=== PATIENT | male | born 1970 | race Caucasian/White ===

== ENCOUNTER 2016-08-06 10:05 | Outpatient (CLI) | payer BC | END 2016-08-06 10:06 | disposition home or self-care (01) | DX: R91.8 Other nonspecific abnormal finding of lung field (principal) ==

== ENCOUNTER 2018-07-10 15:28 | Outpatient (CLI) | payer BC ==
--- NOTE | 2018-07-10 16:19 | XRAY Report ---
Reason: PAIN IN LEFT SHOULDER Procedure Date: 07/10/2018 Accession Number: [id number] / [id number] Procedure: XR - Shoulder 2 View LT CPT Code: FULL RESULT: EXAM: LEFT SHOULDER RADIOGRAPHY EXAM DATE: 07/10/2018 03:42 PM. CLINICAL HISTORY: Pain in left shoulder. COMPARISON: None. TECHNIQUE: 2 views. FINDINGS: Bones: Normal. No fracture or bone lesion. Joints: The glenohumeral and acromioclavicular joints are normal. Soft tissues: The visualized hemithorax is unremarkable. No soft tissue swelling. IMPRESSION: Normal shoulder radiography. RADIA
== END 2018-07-10 15:29 | disposition home or self-care (01) ==
LOC: DI 15:28
PROVIDERS: ATTEND Internal Medicine
DX: M25.512 Pain in left shoulder (principal)

== ENCOUNTER 2019-10-15 07:35 | Outpatient (CLI) | payer BC ==
--- NOTE | 2019-10-15 15:51 | Ultrasound Report ---
PROCEDURE: Head or Neck Soft Tissue INDICATIONS: CERVICALGIA TECHNIQUE: Real time scanning was performed of the neck region of interest, with image documentation . COMPARISON: None. FINDINGS: Sonographic images demonstrate a 13 x 8 mm lymph node at the area of palpable concern withi n the left neck. IMPRESSION: 1. Mildly prominent left neck lymph node as above. This could be reactive in nature. However, as clin ically indicated, short interval imaging follow-up or CT is recommended for additional evaluation., I f clinical concern persists Reviewed by: Veda Moreno MD on 10/15/2019 3:49 PM PDT Approved by: Veda Moreno MD on 10/15/2019 3:49 PM PDT Station ID: [id number]
== END 2019-10-15 07:36 | disposition home or self-care (01) ==
LOC: DI 07:35
PROVIDERS: ATTEND Nurse Practitioner Family
DX: R59.0 Localized enlarged lymph nodes (principal)
CPT/HCPCS: 76536

== ENCOUNTER 2019-10-26 08:00 | Outpatient (CLI) | payer BC ==
[2019-10-26 08:13] LABS: CALCIUM 9.3 mg/dL (8.5-10.3); CREATININE 0.9 mg/dL (0.6-1.2)
[2019-10-26] MEDS ORDERED: IOVERSOL 320 100 ML VIAL IVP ONE ×2 (08:16→08:39)
--- NOTE | 2019-10-26 11:49 | CT Report ---
PROCEDURE: SOFT TISSUE NECK W INDICATIONS: ENLARGED LYMPHNODES CONTRAST: IV CONTRAST: Optiray 320 ml: 100 PO CONTRAST: *NO PO CONTRAST TECHNIQUE: After the administration of intravenous contrast, 3.0 mm axial sections acquired from the sella to th e aortic arch. Additional oblique axial 3.0 mm sections acquired through the pharynx. 3 mm thick co vance reformats were generated. For radiation dose reduction, the following was used: automated exp osure control, adjustment of mA and/or kV according to patient size. COMPARISON: Correlation is made with prior ultrasound 10/15/2019. FINDINGS: Image quality: Excellent. Lymph nodes: In this patient with this given history, scrutiny is given to the lymph nodes. On this study, there are bilateral borderline prominent lymph nodes seen. On the right, there is a level 2A l ymph node seen, as on series 3 image 63 that measures 13 x 9 mm. On the left at level 2A, there is a borderline prominent lymph node seen that measures 11 x 7 mm. Both of these lymph nodes demonstrate n ormal-appearing fatty aissatou. Borderline prominent lymph nodes are seen elsewhere, including within the submental regions. Vessels: Visualized vasculature appears patent. Neck spaces: The oropharynx, nasopharynx, and pharynx demonstrate no mucosal lesions. The vocal cor ds, false vocal cords, pyriform sinuses, epiglottis, vallecula, and tongue base all appear normal. E xtramucosal spaces appear unremarkable. Glands: The parotid and submandibular glands appear normal. The thyroid is normal in size. Miscellaneous: Visualized brain and orbits appear normal. Lung apices appear clear. Superficial so ft tissues appear normal. Bones: No suspicious bony lesions. Visualized sinuses and mastoids appear unremarkable. Mild to mo derate lower cervical spine degenerative changes are seen, with moderate disc space narrowing at C5-C 6. IMPRESSION: Borderline prominent lymph nodes are seen, without radha enlargement or suspicious features. Given th e symmetric nature of the lymph nodes and the age of the patient, these are felt most likely to be re lated to reactive lymph nodes. If they do not resolve clinically, please consider a follow-up ultraso und in 6-12 weeks. Reviewed by: Reynaldo Logan MD on 10/26/2019 10:47 AM SANTOS Approved by: Reynaldo Logan MD on 10/26/2019 10:47 AM SANTOS Station ID: [id number]
== END 2019-10-26 08:01 | disposition home or self-care (01) ==
LOC: DI 08:00
PROVIDERS: ATTEND Nurse Practitioner Family
DX: R59.0 Localized enlarged lymph nodes (principal)
CPT/HCPCS: 36415; 70491; 80048; Q9967

== ENCOUNTER 2020-11-23 12:35 | Outpatient (CLI) | payer BC ==
--- NOTE | 2020-11-23 13:21 | XRAY Report ---
PROCEDURE: Ribs w/PA Chest RT INDICATIONS: CONTUSION OF RIGHT FRONT WALL OF THORAX TECHNIQUE: 3 views of the right ribs were acquired, along with a single view chest. COMPARISON: Chest radiographs 08/06/2016. FINDINGS: Surgical changes and devices: None. Bones and chest wall: No acute displaced rib fracture. No suspicious bony lesions. Overlying soft tissues appear unremarkable. Degenerative changes are seen in the lumbar spine. Lungs and pleura: No pleural effusions or pneumothorax. Lungs appear clear. Mediastinum: Mediastinal contours appear normal. Heart size is normal. IMPRESSION: No acute displaced rib fracture. No pneumothorax. Reviewed by: Heriberto Gordillo MD on 11/23/2020 1:19 PM PDT Approved by: Heriberto Gordillo MD on 11/23/2020 1:19 PM PDT Station ID: [id number]
== END 2020-11-23 23:59 | disposition home or self-care (01) ==
LOC: DI.S 12:35
PROVIDERS: ATTEND Emergency Medicine
DX: S20.211A Contusion of right front wall of thorax, initial encounter (principal)

== ENCOUNTER 2023-09-26 19:26 | Emergency (ER) | payer BC ==
--- NOTE | 2023-09-26 20:13 | ED Physician Documentation ---
History of Present Illness - Stated complaint Stated Complaint: R SIDE TINGLING - Chief complaint Chief Complaint: General - History obtained from History obtained from: Patient, Family - Additonal information Additional information: 53-year-old gentleman presents with his . He has a history of ongoing longstanding tobacco use. No history of neurologic issues. For the first 3 days of this week culminating yesterday had a fever with a Tmax of 100.7 and just felt kind of off. For the last 3 days though he has noted tingling of the right face including the gums when he brushes his teeth, the right hand and the right leg. No associated headache. No weakness. PD PAST MEDICAL HISTORY - Past Medical History Past Medical History: Yes Cardiovascular: None Respiratory: None Neuro: None Endocrine/Autoimmune: None GI: None : None HEENT: None Psych: None Musculoskeletal: None Derm: None - Past Surgical History Past Surgical History: No - Present Medications Home Medications: Ambulatory Orders Medication Instructions Recorded Confirmed Atorvastatin Calcium 40 mg PO DAILY #90 tablet 09/26/23 - Allergies Allergies/Adverse Reactions: Allergies Allergy/AdvReac Type Severity Reaction Status Date / Time No Known Drug Allergies Allergy Verified 09/26/23 19:29 - Social History Does the pt smoke?: No Smoking Status: Never smoker Does the pt drink ETOH?: No Does the pt have substance abuse?: No - Immunizations Immunizations are current?: Yes - POLST Patient has POLST: No PD ED PE NORMAL - Vitals Vital signs reviewed: Yes - General General: Alert and oriented X 3, No acute distress - HEENT HEENT: PERRL, EOMI - Neck Neck: Supple, no meningeal sign, No bony TTP - Cardiac Cardiac: RRR, No murmur - Respiratory Respiratory: No respiratory distress, Clear bilaterally - Abdomen Abdomen: Non tender - Extremities Extremities: No edema - Neuro Neuro: Alert and oriented X 3, hot frame tender 2-12 intact, No motor deficit, No sensory deficit, Normal speech, Other (NIH stroke scale done at 8:05 PM was 0.) Eye Opening: Spontaneous Motor: Obeys Commands Verbal: Oriented GCS Score: 15 Results - Vitals Vitals: Vital Signs - 24 hr 09/26/23 19:29 Temperature 36.8 C Heart Rate 89 Respiratory 16 Rate Blood Pressure 139/76 H O2 Saturation 99 Oxygen O2 Source Room air - EKG (time done) 2028 EKG releavant findings:: EKG personally interpreted by author of this note. Relevant findings are: Rate: Rate (enter#) (82) Rhythm: NSR [place]: Normal Intervals: Normal OK QRS: Normal Ischemia: Normal ST segments Computer interpretation: Agree with computer - Labs Labs: Laboratory Tests 09/26/23 09/26/23 09/26/23 20:22 20:22 20:22 WBC 5.8 RBC 4.65 L Hgb 14.7 Hct 42.0 MCV 90.3 MCH 31.6 H MCHC 35.0 RDW 11.8 L Plt Count 268 MPV 8.5 Neut # (Auto) 2.3 Lymph # (Auto) 2.9 [place] # (Auto) 0.4 Eos # (Auto) 0.1 Baso # (Auto) 0.0 Absolute Nucleated RBC 0.00 Nucleated RBC % 0.0 PT 10.6 INR 1.0 Sodium 136 Potassium 3.6 Chloride 101 Carbon Dioxide 26 Anion Gap 9.0 BUN 9 Creatinine 0.8 Estimated GFR (MDRD) 102 Glucose 87 Calcium 9.4 Total Bilirubin 0.3 AST 19 ALT 14 Alkaline Phosphatase 58 Total Protein 7.2 Albumin 4.6 Globulin 2.6 Albumin/Globulin Ratio 1.8 Lipase 49 - Rads (name of study) CT head without contrast demonstrating 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 No acute disease. Relevant Findings:: Final report received, EMP independent interpretation of test CTA Head/neck Relevant Findings:: Final report received, EMP independent interpretation of test PD Medical Decision Making - ED course Complexity details: reviewed results (CBC, CMP, INR all normal/negative) ED course: 53-year-old gentleman presents with strokelike symptoms. The area of stroke would be quite small and would be focused in the left sensory cortex likely. Left park radiata could also do this. He is not a thrombolytic candidate as he has had symptoms for about 48 hours plus. He had a fever earlier this week but appears well now with minimal symptomatology from that perspective and no white count. CT of the head does demonstrate an old infarct of the right temporal lobe which was probably an asymptomatic stroke in the past. He is a smoker and was counseled to quit smoking. He was started on aspirin and a statin. Counseled about the prior stroke and the need to quit smoking. Discussed with him that the CT showing no changes of the left hemisphere tonight was not indicative of a lack of stroke, rather that the area of stroke was probably too small and too fresh to be seen by CT and he is encouraged to return tomorrow morning for an MRI. Departure - Departure Disposition: 01 Home, Self Care Clinical Impression: CVA (cerebral vascular accident) Condition: Good Record reviewed to determine appropriate education?: Yes Instructions: ED Stroke Completed Prescriptions: Atorvastatin Calcium 40 mg PO DAILY #90 tablet Comments: You were seen tonight for symptoms which would suggest a stroke of the left- sided sensory cortex or potentially the left park radiata. Your symptoms seem very mild and there is no evidence of the current stroke on the CAT scan tonight. That said, there was evidence of an older stroke in the right temporal lobe. We are starting you on cholesterol medication and you should also take a baby aspirin a day. You should return tomorrow morning for an MRI and as we discussed it would be best if you quit smoking. Forms: PCP List, Activity restrictions
[2023-09-26] MEDS ORDERED: iohexoL-240 10 ML VIAL IVP ONE (20:19)
[2023-09-26] MEDS ORDERED: iohexoL-300 150 ML BOTTLE ONE (20:25)
[2023-09-26 20:35] LABS: BASOPHILS % (AUTO) 0.7 %; EOSINOPHILS # (AUTO) 0.1 10^3/uL (0.0-0.7); EOSINOPHILS % (AUTO) 2.1 %; HGB - HEMOGLOBIN 14.7 g/dL (14.0-18.0); LYMPHOCYTES # (AUTO) 2.9 10^3/uL (1.5-3.5); LYMPHOCYTES % (AUTO) 50.4 %; MEAN CORPUSCULAR HEMOGLOBIN 31.6 pg (27.0-31.0); MEAN CORPUSCULAR VOLUME 90.3 fL (80.0-94.0); MEAN PLATELET VOLUME 8.5 fL (7.4-11.4); MONOCYTES # (AUTO) 0.4 10^3/uL (0.0-1.0); MONOCYTES % (AUTO) 7.1 %; NEUTROPHILS # (AUTO) 2.3 10^3/uL (1.5-6.6); NEUTROPHILS % (AUTO) 39.5 %; PLT - PLATELET COUNT 268 10^3/uL (130-450); RED BLOOD COUNT 4.65 10^6/uL (4.70-6.10); RED CELL DISTRIBUTION WIDTH 11.8 % (12.0-15.0); WHITE BLOOD COUNT 5.8 x10^3/uL (4.8-10.8)
[2023-09-26 20:42] LABS: PT - PROTHROMBIN TIME 10.6 secs (9.9-12.6)
[2023-09-26 20:49] LABS: ALBUMIN 4.6 g/dL (3.2-5.5); ALBUMIN/GLOBULIN RATIO 1.8 (1.0-2.2); BILIRUBIN,TOTAL 0.3 mg/dL (0.2-1.0); CALCIUM 9.4 mg/dL (8.5-10.3); CREATININE 0.8 mg/dL (0.6-1.3); POTASSIUM 3.6 mmol/L (3.5-4.5); TOTAL PROTEIN 7.2 g/dL (6.4-8.9)
--- NOTE | 2023-09-26 21:08 | CT Report ---
PROCEDURE: Head W/O Stroke Protocol INDICATIONS: Neuro deficit, acute, stroke suspected TECHNIQUE: Noncontrast 4.5 mm thick angled axial sections acquired from the foramen magnum to the vertex, with c oronal reformats. For radiation dose reduction, the following was used: automated exposure control, adjustment of mA and/or kV according to patient size. COMPARISON: None. FINDINGS: Image quality: Excellent. CSF spaces: Basal cisterns are patent. No extra-axial fluid collections. Ventricles are normal in size and shape. Brain: Likely old infarction involving right posterior lateral temporal lobe with encephalomalacia i s seen. No midline shift. No intracranial masses or hemorrhage. Cruz-white matter interface is norm al. Skull and face: Calvarium and visualized facial bones are intact, without suspicious lesions. Sinuses: Visualized sinuses and mastoids are clear. IMPRESSION: 1. No CT evidence of acute intracranial abnormalities. No contraindication for IV TPA therapy. 2. Old infarction involving right temporal lobe with encephalomalacia. Findings were discussed with ordering provider on 09/26/2023 at 9:06 PM. This study fulfills neurological imaging criteria for inclusion or exclusion of acute stroke therapie s based on available published neurological imaging guidelines. Reviewed by: Travon Brown MD on 09/26/2023 9:07 PM PDT Approved by: Travon Brown MD on 09/26/2023 9:07 PM PDT Station ID: [id number]
--- NOTE | 2023-09-26 21:23 | CT Report ---
PROCEDURE: Angio Head/Neck INDICATIONS: cva sx TECHNIQUE: After the administration of intravenous contrast, 1 mm thick sections acquired from the aortic arch t hrough the [place]. 3-dimensional dowqpyg-isiaokefo-hubwfxbvoc (MIP) and/or volume renderin g reformats were acquired of the central intracranial vasculature and neck separately. For radiation dose reduction, the following was used: automated exposure control, adjustment of mA and/or kV acco rding to patient size. CONTRAST: 80ml omni COMPARISON: None. FINDINGS: Image quality: Diagnostic. HEAD CT: CSF Spaces: Basal cisterns are patent. No extra-axial fluid collections. Ventricles are normal in size and shape. Brain: No significant abnormality is seen for scanning technique. Skull and face: Calvarium and visualized facial bones appear intact, without suspicious lesions. Sinuses: Sinusitis better evaluated on CT head from the same day. HEAD CT ANGIOGRAPHY: Anterior circulation: Intracranial internal carotid arteries are normal in size and flow. The flow within the paired anterior cerebral arteries is normal and symmetric. The flow within the middle cer ebral arteries is normal and symmetric. The anterior communicating artery is seen. No aneurysms are seen. Posterior circulation: Visualized portions of the vertebral arteries demonstrate normal caliber, and join to form a normal appearing basilar artery. Flow within the posterior cerebral arteries is norm al and symmetric. No aneurysms are seen. NECK CT ANGIOGRAPHY: Carotid system: The great vessels demonstrate a conventional anatomy as they arise from the aortic a rch. The origins of the common carotid arteries appear patent. The common carotid arteries demonstr ate normal caliber and courses. The bifurcation regions are both widely patent. The internal caroti d arteries demonstrate normal calibers and courses. Posterior circulation: The origins of the vertebral arteries both appear widely patent. The more pacheco perior extracranial portions of both vertebral arteries also demonstrate normal courses and calibers. They join to form a normal appearing basilar artery. Soft tissues: Visualized neck soft tissues demonstrate no suspicious abnormalities. Hazy groundglas s opacities are seen throughout visualized bilateral upper lung martin. Bones: No suspicious bony lesions. Visualized cervical spine appears normally aligned. IMPRESSION: No significant intracranial arterial abnormality is seen. No significant abnormality is seen within the arteries of the neck. Hazy groundglass opacities throughout visualized bilateral upper lung martin concerning for mild pulm onary edema. The estimate of stenosis included in the report of the imaging study was calculated using the NASCET method Reviewed by: Travon Combs MD on 09/26/2023 9:22 PM PDT Approved by: Travon Combs MD on 09/26/2023 9:22 PM PDT Station ID: [id number]
[2023-09-26] MEDS: ATORVASTATIN 40 MG TABLET PO STA (21:39)
[2023-09-26] MEDS: ASPIRIN CHEW 81 MG TABLET PO STA (21:39)
[2023-09-26 21:45] VITALS: BP 129/82; O2SAT 94
== END 2023-09-26 21:50 | disposition home or self-care (01) ==
LOC: ED 19:26
DX: I63.9 Cerebral infarction, unspecified (principal); F17.200 Nicotine dependence, unspecified, uncomplicated
CPT/HCPCS: 36415; 70450; 70496; 70498; 80053; 83690; 85025; 85610; 99284; A9270; 93005; Q9966

== ENCOUNTER 2023-09-27 08:14 | Emergency (ER) | payer BC ==
[2023-09-27 08:28] VITALS: O2SAT 99
--- NOTE | 2023-09-27 08:42 | ED Physician Documentation ---
History of Present Illness - Stated complaint Stated Complaint: MRI - Chief complaint Chief Complaint: General - History obtained from History obtained from: Patient - History of Present Illness Pain level max: 0 Pain level now: 0 - Additonal information Additional information: Patient is a 53-year-old male who states that he was seen here yesterday for right-sided paresthesias which have since resolved. He was seen here last night by my partner and told to return this morning for an MRI. He is currently asymptomatic. Review of Systems Constitutional: denies: Fever Cardiac: denies: Chest pain / pressure Respiratory: denies: Dyspnea Musculoskeletal: denies: Neck pain, Back pain Neurologic: denies: LOC PD PAST MEDICAL HISTORY - Past Medical History Cardiovascular: None Respiratory: None Neuro: None Endocrine/Autoimmune: None GI: None : None HEENT: None Psych: None Musculoskeletal: None Derm: None - Past Surgical History Past Surgical History: No - Present Medications Home Medications: Ambulatory Orders Medication Instructions Recorded Confirmed Atorvastatin Calcium 40 mg PO DAILY #90 tablet 09/26/23 09/27/23 Atorvastatin Calcium 40 mg PO DAILY #90 tablet 09/27/23 - Allergies Allergies/Adverse Reactions: Allergies Allergy/AdvReac Type Severity Reaction Status Date / Time No Known Drug Allergies Allergy Verified 09/27/23 08:21 - Social History Does the pt smoke?: No Smoking Status: Never smoker Does the pt drink ETOH?: No Does the pt have substance abuse?: No - Immunizations Immunizations are current?: Yes - POLST Patient has POLST: No PD ED PE NORMAL - Vitals Vital signs reviewed: Yes - General General: Alert and oriented X 3, No acute distress - HEENT HEENT: Moist mucous membranes - Neck Neck: Supple, no meningeal sign - Cardiac Cardiac: RRR - Respiratory Respiratory: No respiratory distress, Clear bilaterally - Abdomen Abdomen: Soft, Non tender, Non distended - Back Back: No spinal TTP - Derm Derm: Warm and dry - Extremities Extremities: No edema, No calf tenderness / cord - Neuro Neuro: Alert and oriented X 3, 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 No acute findings on MRI. No evidence of acute stroke. His statin was sent to a local pharmacy after he requested electronic transmission of this. He is asymptomatic here. Will have him follow-up with his PCP for further care. Patient counseled regarding signs and symptoms for which I believe and urgent re-evaluation would be necessary. Patient with good understanding of and agreement to plan and is comfortable going home at this time This document was made in part using voice recognition software. While efforts are made to proofread this document, sound alike and grammatical errors may occur. Departure - Departure Disposition: 01 Home, Self Care Clinical Impression: Paresthesia Condition: Good Instructions: ED Paraesthesias Follow-Up: your,doctor in 1 week [Other] Prescriptions: Atorvastatin Calcium 40 mg PO DAILY #90 tablet Comments: Please use the prescription was prescribed by Dr. Lomax yesterday. I did send this to [facility] in [place] today. Your MRI does not show any acute abnormalities. No evidence of stroke. It is still recommended that you stop smoking. Please return if you worsen. Forms: PCP List Discharge Date/Time: 09/27/23 10:37
--- NOTE | 2023-09-27 09:59 | MRI Report ---
PROCEDURE: Brain WO INDICATIONS: R sided paresthesias TECHNIQUE: Noncontrast axial T1 spin echo, axial T2 fast spin echo, sagittal and axial FLAIR, coronal T2 fast sp in echo, axial gradient echo, axial diffusion and ADC through the brain. COMPARISON: CT head dated 09/26/2023. FINDINGS: Image quality: Excellent. CSF Spaces: Basal cisterns are patent. No extra-axial fluid collections. Ventricles are normal in size and shape. Brain: No intracranial masses or hemorrhage. Cruz/white matter interface is normal. Brainstem appe ars normal. Diffusion-weighted images demonstrate no acute ischemic insult. No chronic ischemic ins ults. There is age-related volume loss and mild to moderate periventricular white matter change consi stent with small vessel ischemic change. Normal intravascular flow voids are present. Skull and face: Calvarium has normal marrow signal. Orbits appear normal. Sinuses: Sinuses and mastoids are clear. IMPRESSION: 1. No acute intracranial process. 2. Age-related volume loss and mild to moderate small vessel ischemic change. Reviewed by: Bacilio Damon MD on 09/27/2023 9:57 AM PDT Approved by: Bacilio Damon MD on 09/27/2023 9:57 AM PDT Station ID: [id number]
[2023-09-27 10:39] VITALS: BP 133/89
== END 2023-09-27 10:37 | disposition home or self-care (01) ==
LOC: ED 08:14
DX: R20.2 Paresthesia of skin (principal)
CPT/HCPCS: 99282; 99284